=== PATIENT | female | born 1940 | race Caucasian/White ===

== ENCOUNTER 2018-07-21 15:25 | Outpatient (REF) | payer MEDICARE, SELFPAY | END 2018-07-21 15:45 | LOC: NCHCN 15:25 | PROVIDERS: PCP Family Medicine; Visit Provider Family Medicine | DX: R10.13 Epigastric pain (principal); M54.89 Other dorsalgia | CPT/HCPCS: 87086 ==

== ENCOUNTER 2020-01-11 12:29 | Outpatient (REF) | payer MEDICARE, SELFPAY ==
--- NOTE | 2020-01-11 11:15 | PAPFT_PTH ---
PATIENT: Dian Araujo LOC: [facility]#:[id number] AGE/SX: 79/F ROOM: RE01/11/[address]: Mariaelena Murphy : 1940 BED: DIS: 01/11/2020 SPEC #: [id number] RECD: 01/12/20 13:17 STATUS: H[place] REMray Anne #: [id number] MITCHELL: 01/11/20 11:[address]: Mariaelena Murphy DEPT: [facility] Cytology RECD BY: Helen Crowley Tissues: 1 - CX/ENDOCX FOR PAP SMEARS Procedures: PAP THIN PREP/[facility] Screening HPV DNA PROBE Comments: [id number] ([id number] [facility])
== END 2020-01-11 12:49 ==
LOC: NCHCN 12:29
PROVIDERS: PCP Family Medicine; Visit Provider Family Medicine
DX: Z12.4 Encounter for screening for malignant neoplasm of cervix (principal); Z11.51 Encounter for screening for human papillomavirus (HPV)
CPT/HCPCS: 88142; 87624

== ENCOUNTER 2020-01-24 17:42 | Outpatient (REF) | payer MEDICARE, SELFPAY ==
[2020-01-24 23:04] LABS: Abs Immature Grans 0.01 10^3/uL (0.0-0.06); Absolute Basophil Count 0.08 10^3/uL (0.0-0.2); Absolute Eosinophil Count 0.09 10^3/uL (0.0-0.7); Absolute Lymphocyte Count 1.34 10^3/uL (1.2-3.4); Absolute Monocyte Count 0.38 10^3/uL (0.1-0.8); Absolute Neutrophil Count 1.92 10^3/uL (1.2-6.7); Basophils % 2.1; Eosinophils % 2.4; HCT 36.5 % (36.0-46.0); HGB 11.9 g/dL (11.2-15.7); Immature Grans % 0.3; Lymphocytes % 35.1; MCH 31.7 pg (27.0-33.0); MCHC 32.6 % (32.0-36.0); MCV 97.3 fL (80-95); MPV 9.8 fL (8.0-11.0); Monocytes % 9.9; Neutrophils % 50.2; Nucleated RBC 0 %; Platelet Count 315 10^3/uL (130-400); RBC 3.75 10^6/uL (3.93-5.22); RDW 16.5 % (11.7-14.6); RDW-SD 58.2 fL; WBC 3.82 10^3/uL (4.4-10.8)
[2020-01-24 23:34] LABS: ALT 15 U/L (14-59); AST 11 U/L (15-37); Albumin 3.6 g/dL (3.4-5.0); Alkaline Phosphatase 45 U/L (46-116); Anion Gap 6.5 mmol/L (3-11); BUN 18 mg/dL (7-18); Bilirubin, Total 0.3 mg/dL (0.2-1.0); CO2 27.5 mmol/L (21.0-32.0); CREATININE 1.02 mg/dL (0.55-1.02); Calcium 8.4 mg/dL (8.5-10.1); Calculated LDL 107 mg/dL (<100); Chloride 106 mmol/L (98-107); Cholesterol 199 mg/dL (<200); Estimated GFR 52.28 (mL/min/1.73m2); Glucose 81 mg/dL (74-106); HDL Cholesterol 40 mg/dL (40-60); Potassium 4.6 mmol/L (3.5-5.1); Sodium 140 mmol/L (136-145); TSH (W/Ref FT4) 4.49 uIU/mL (0.36-3.74); Total Protein 6.9 g/dL (6.4-8.2); Triglyceride 262 mg/dL (<150)
[2020-01-24 23:51] LABS: FREE T4 0.89 ng/dL (0.76-1.46); PHOSPHORUS 3.3 mg/dL (2.6-4.7)
== END 2020-01-24 18:02 ==
LOC: NCHCN 17:42
PROVIDERS: PCP Family Medicine; Visit Provider Family Medicine
DX: E03.9 Hypothyroidism, unspecified (principal)
CPT/HCPCS: 80053; 80061; 84100; 84439; 84443; 85025

== ENCOUNTER 2020-03-20 15:48 | Outpatient (REF) | payer MEDICARE, SELFPAY ==
[2020-03-20 21:58] LABS: Abs Immature Grans 0.02 10^3/uL (0.0-0.06); Absolute Eosinophil Count 0.06 10^3/uL (0.0-0.7); Absolute Lymphocyte Count 1.57 10^3/uL (1.2-3.4); Absolute Monocyte Count 0.38 10^3/uL (0.1-0.8); Absolute Neutrophil Count 3.97 10^3/uL (1.2-6.7); Basophils % 1.6; HCT 33.3 % (36.0-46.0); HGB 11.4 g/dL (11.2-15.7); Immature Grans % 0.3; Lymphocytes % 25.7; MCH 35.7 pg (27.0-33.0); MCHC 34.2 % (32.0-36.0); MCV 104.4 fL (80-95); MPV 10.5 fL (8.0-11.0); Monocytes % 6.2; Neutrophils % 65.2; Nucleated RBC 0 %; Platelet Count 295 10^3/uL (130-400); RBC 3.19 10^6/uL (3.93-5.22); RDW 12.1 % (11.7-14.6); RDW-SD 46.5 fL
[2020-03-20 22:26] LABS: ALT 18 U/L (14-59); AST 14 U/L (15-37); Albumin 3.5 g/dL (3.4-5.0); Alkaline Phosphatase 43 U/L (46-116); Anion Gap 5.1 mmol/L (3-11); BUN 20 mg/dL (7-18); Bilirubin, Total 0.2 mg/dL (0.2-1.0); CO2 28.9 mmol/L (21.0-32.0); CREATININE 1.07 mg/dL (0.55-1.02); Calcium 8.7 mg/dL (8.5-10.1); Chloride 102 mmol/L (98-107); Estimated GFR 49.47 (mL/min/1.73m2); Glucose 91 mg/dL (74-106); PHOSPHORUS 3.5 mg/dL (2.6-4.7); Potassium 4.8 mmol/L (3.5-5.1); Sodium 136 mmol/L (136-145)
[2020-03-23 10:33] LABS: CA 27 29 25.8 U/mL (<38.0)
== END 2020-03-20 16:08 ==
LOC: NCHCN 15:48
PROVIDERS: PCP Family Medicine; Visit Provider Internal Medicine Hematology & Oncology
DX: C50.411 Malignant neoplasm of upper-outer quadrant of right female breast (principal); Z17.0 Estrogen receptor positive status [ER+]
CPT/HCPCS: 80053; 84100; 85025; 86300

== ENCOUNTER 2020-04-18 14:54 | Outpatient (REF) | payer MEDICARE, SELFPAY ==
[2020-04-18 22:27] LABS: Bacteria Negative HPF (Negative); Crystals Negative HPF (Negative); Epithelial Cells Rare HPF (Negative); Other Cells Rare Renal (Negative)
[2020-04-18 22:28] LABS: C & S Indicated? C&S Done As Ordered; Casts Negative LPF (Negative); Mucus Negative (Negative); WBC >50 HPF (0-5)
== END 2020-04-22 23:59 | disposition home or self-care (01) ==
LOC: NCHCN 14:54
PROVIDERS: PCP Family Medicine; Visit Provider Nurse Practitioner Family
DX: R30.0 Dysuria (principal)
CPT/HCPCS: 87077; 81015; 87086; 87186

== ENCOUNTER 2020-05-17 18:57 | Outpatient (REF) | payer MEDICARE, SELFPAY ==
[2020-05-17 20:17] LABS: Abs Immature Grans 0.01 10^3/uL (0.0-0.06); Absolute Basophil Count 0.08 10^3/uL (0.0-0.2); Absolute Eosinophil Count 0.14 10^3/uL (0.0-0.7); Absolute Lymphocyte Count 1.17 10^3/uL (1.2-3.4); Absolute Monocyte Count 0.29 10^3/uL (0.1-0.8); Absolute Neutrophil Count 1.77 10^3/uL (1.2-6.7); Basophils % 2.3; HCT 33.3 % (36.0-46.0); HGB 11.2 g/dL (11.2-15.7); Immature Grans % 0.3; Lymphocytes % 33.8; MCH 34.1 pg (27.0-33.0); MCHC 33.6 % (32.0-36.0); MCV 101.5 fL (80-95); MPV 9.6 fL (8.0-11.0); Monocytes % 8.4; Neutrophils % 51.2; Nucleated RBC 0 %; Platelet Count 274 10^3/uL (130-400); RBC 3.28 10^6/uL (3.93-5.22); RDW 11.9 % (11.7-14.6); RDW-SD 43.8 fL; WBC 3.46 10^3/uL (4.4-10.8)
[2020-05-17 20:31] LABS: ALT 17 U/L (14-59); AST 12 U/L (15-37); Albumin 3.2 g/dL (3.4-5.0); Alkaline Phosphatase 35 U/L (46-116); Anion Gap 7.9 mmol/L (3-11); BUN 18 mg/dL (7-18); Bilirubin, Total 0.2 mg/dL (0.2-1.0); CO2 29.1 mmol/L (21.0-32.0); CREATININE 0.9 mg/dL (0.55-1.02); Calcium 8.8 mg/dL (8.5-10.1); Chloride 104 mmol/L (98-107); Glucose 99 mg/dL (74-106); PHOSPHORUS 3.7 mg/dL (2.6-4.7); Potassium 4.2 mmol/L (3.5-5.1); Sodium 141 mmol/L (136-145); Total Protein 6.6 g/dL (6.4-8.2)
[2020-05-21 09:30] LABS: CA 27 29 15.8 U/mL (<38.0)
== END 2020-05-17 18:58 | disposition home or self-care (01) ==
LOC: LBN 18:57
PROVIDERS: PCP Family Medicine; Visit Provider Internal Medicine Hematology & Oncology
DX: C50.411 Malignant neoplasm of upper-outer quadrant of right female breast (principal); Z17.0 Estrogen receptor positive status [ER+]
CPT/HCPCS: 80053; 84100; 85025; 86300

== ENCOUNTER 2020-08-08 14:59 | Outpatient (REF) | payer MEDICARE, SELFPAY ==
[2020-08-08 22:08] LABS: Absolute Basophil Count 0.09 10^3/uL (0.0-0.2); Absolute Eosinophil Count 0.08 10^3/uL (0.0-0.7); Absolute Lymphocyte Count 1.32 10^3/uL (1.2-3.4); Absolute Neutrophil Count 2.96 10^3/uL (1.2-6.7); Basophils % 1.9; Eosinophils % 1.7; HCT 36.4 % (36.0-46.0); HGB 12.5 g/dL (11.2-15.7); Lymphocytes % 27.8; MCH 34.8 pg (27.0-33.0); MCHC 34.3 % (32.0-36.0); MCV 101.4 fL (80-95); MPV 9.8 fL (8.0-11.0); Monocytes % 6.3; Neutrophils % 62.3; Nucleated RBC 0 %; Platelet Count 294 10^3/uL (130-400); RBC 3.59 10^6/uL (3.93-5.22); RDW 11.9 % (11.7-14.6); RDW-SD 45.1 fL; WBC 4.75 10^3/uL (4.4-10.8)
[2020-08-08 22:24] LABS: ALT 21 U/L (14-59); AST 18 U/L (15-37); Albumin 3.5 g/dL (3.4-5.0); Alkaline Phosphatase 42 U/L (46-116); Anion Gap 7.3 mmol/L (3-11); BUN 18 mg/dL (7-18); Bilirubin, Total 0.2 mg/dL (0.2-1.0); CO2 29.7 mmol/L (21.0-32.0); CREATININE 1.1 mg/dL (0.55-1.02); Calcium 9.1 mg/dL (8.5-10.1); Chloride 100 mmol/L (98-107); Estimated GFR 47.91 (mL/min/1.73m2); Glucose 97 mg/dL (74-106); Potassium 4.4 mmol/L (3.5-5.1); Sodium 137 mmol/L (136-145); Total Protein 7.1 g/dL (6.4-8.2)
== END 2020-08-08 15:00 | disposition home or self-care (01) ==
LOC: NCHCN 14:59
PROVIDERS: PCP Family Medicine; Visit Provider Family Medicine
DX: N39.0 Urinary tract infection, site not specified (principal); R30.0 Dysuria; C50.411 Malignant neoplasm of upper-outer quadrant of right female breast; Z17.0 Estrogen receptor positive status [ER+]
CPT/HCPCS: 80053; 85025; 87086

== ENCOUNTER 2020-12-11 16:43 | Outpatient (REF) | payer MEDICARE, SELFPAY ==
[2020-12-11 21:58] LABS: Abs Immature Grans 0.01 10^3/uL (0.0-0.06); Absolute Basophil Count 0.07 10^3/uL (0.0-0.2); Absolute Eosinophil Count 0.04 10^3/uL (0.0-0.7); Absolute Lymphocyte Count 0.91 10^3/uL (1.2-3.4); Absolute Monocyte Count 0.38 10^3/uL (0.1-0.8); Absolute Neutrophil Count 2.88 10^3/uL (1.2-6.7); Basophils % 1.6; Eosinophils % 0.9; HCT 32.7 % (36.0-46.0); HGB 10.7 g/dL (11.2-15.7); Immature Grans % 0.2; Lymphocytes % 21.2; MCH 34.5 pg (27.0-33.0); MCHC 32.7 % (32.0-36.0); MCV 105.5 fL (80-95); MPV 10.1 fL (8.0-11.0); Monocytes % 8.9; Neutrophils % 67.2; Nucleated RBC 0 %; Platelet Count 256 10^3/uL (130-400); RDW 12.1 % (11.7-14.6); RDW-SD 46.9 fL; WBC 4.29 10^3/uL (4.4-10.8)
[2020-12-11 22:06] LABS: BUN 17 mg/dL (7-18); CREATININE 1.1 mg/dL (0.55-1.02); Calcium 8.8 mg/dL (8.5-10.1); Chloride 103 mmol/L (98-107); Estimated GFR 47.79 (mL/min/1.73m2); Glucose 91 mg/dL (74-106); Potassium 4.7 mmol/L (3.5-5.1); Sodium 139 mmol/L (136-145)
[2020-12-11 22:23] LABS: Macrocytosis 3+
[2020-12-13 18:23] LABS: COVID-19 RT-PCR UVMMC Result Negative (Negative)
== END 2020-12-11 16:44 | disposition home or self-care (01) ==
LOC: NCHCN 16:43
PROVIDERS: PCP Family Medicine; Visit Provider Family Medicine
DX: R53.83 Other fatigue (principal); R05.8 Other specified cough; I10 Essential (primary) hypertension; Z20.822 Contact with and (suspected) exposure to COVID-19
CPT/HCPCS: 80048; U0003; 85025